=== PATIENT | female | born 2000 | race Caucasian/White ===

== ENCOUNTER 2025-01-26 19:39 | Emergency (ER) | payer OTHER ==
[~2025-01-26] VITALS: Ht 177.8 cm; Wt 90.7 kg
[~2025-01-26 19:39] MED LIST: KEFLEX500 MG PO
[2025-01-26] MEDS ORDERED: Dicyclomine Hydrochloride 20 MG/10 ML OSYR PO STA (20:09)
[2025-01-26] MEDS ORDERED: Lidocaine Hydrochloride 15 ML UDC PO STA (20:09)
[2025-01-26] MEDS ORDERED: MG-AL HYDROXIDE/SIMETICONE 30 ML UDC PO STA (20:10)
[2025-01-26 20:30] LABS: BASO % 0.4 % (0.0-1.0); EOS # 0.1 10*3/uL (0.0-0.4); EOS % 1.2 % (1.0-4.0); HEMATOCRIT 39.2 % (37.0-47.0); MEAN CELL VOLUME 91.4 fl (81.0-99.0); MEAN CORPUSCULAR HGB 30.3 pg (27.0-31.0); MEAN CORPUSCULAR HGB CONC 33.2 g/dl (33.0-37.0); MEAN PLATELET VOLUME 9.4 fl (9.6-12.3); MONO # 0.4 10*3/uL (0.1-1.0); MONO % 5.2 % (3.0-9.0); NEUT % 53.2 % (47.0-73.0); PLATELET COUNT AUTOMATED 262 10*3/uL (130-400); RED BLOOD COUNT 4.29 10*6/uL (4.10-5.10); RED CELL DISTRI WIDTH 11.9 % (0-14.5); WHITE BLOOD COUNT 7.5 10*3/uL (4.8-10.8)
[2025-01-26 21:03] LABS: ALKALINE PHOSPHATASE 35 U/L (46-116); BUN 8 mg/dl (9-23); CHLORIDE 105 mmol/L (98-107); LIPASE 46 U/L (12-53); POTASSIUM 2.9 mmol/L (3.4-5.1); SGPT/ALT 13 U/L (5-49); TOTAL PROTEIN 7.2 gm/dL (6.0-8.0)
[2025-01-26] MEDS ORDERED: POTASSIUM CHLORIDE 20 MEQ TAB PO ONE (21:10)
[2025-01-26] MEDS ORDERED: PROTONIX40 MG PO (21:39)
[2025-01-26] MEDS ORDERED: POTASSIUM CHLO20 ME3 PO (21:39)
== END 2025-01-26 21:48 | disposition home or self-care (01) ==
LOC: ED 19:39
PROVIDERS: Nurse Practitioner Family
DX: E87.6 Hypokalemia (principal); K21.9 Gastro-esophageal reflux disease without esophagitis; Z88.1 Allergy status to other antibiotic agents